=== PATIENT | male | born 1950 | race Caucasian/White ===

== ENCOUNTER 2016-04-30 06:12 | Day surgery (SDC) | payer MEDICARE ==
[2016-04-23 13:27] VITALS: BMI 36.6
[~2016-04-30 06:12] MED LIST: LACTATED RINGERS 1,000 ML IV SCH; SODIUM CHLORIDE 0.9% 1,000 ML IV SCH
[2016-04-30 06:29] VITALS: TEMP 98.1
[2016-04-30 06:42] LABS: Basophils % (A) 1 %; CH 32.6; CHCM 34.2; Eosinophils # (A) 0.2 k/uL (0-0.7); Eosinophils % (A) 3 %; HCT 42.4 % (39.0-53.0); HDW 2.81; HGB 14.5 gm/dL (13.0-17.5); Luc # (Auto) 0.15; Luc % (Auto) 3; Lymphocytes # (A) 1.4 k/uL (1.0-4.8); Lymphocytes % (A) 26 %; MCH 32.7 pg (25.0-35.0); MCHC 34.2 g/dL (31.0-37.0); MCV 95.5 fL (80.0-100.0); Mean Platelet Volume 7.9; Monocytes # (A) 0.4 k/uL (0-1.0); Monocytes % (A) 6 %; Neutrophils # (A) 3.4 k/uL (1.3-7.7); Neutrophils % (A) 61 %; RBC 4.44 m/uL (4.30-5.90); RDW 13.7 % (11.5-15.5); WBC 5.5 k/uL (3.8-10.6); WBC (Perox) 5.35
[2016-04-30 06:56] LABS: Anion Gap 14 mmol/L; Blood Urea Nitrogen 27 mg/dL (9-20); Calcium 9.1 mg/dL (8.4-10.2); Carbon Dioxide 23 mmol/L (22-30); Chloride 108 mmol/L (98-107); Glucose 117 mg/dL (74-99); Non-African American GFR(MDRD) >60 (>60 ml/min/1.73 sqM); Potassium 4.4 mmol/L (3.5-5.1); Sodium 145 mmol/L (137-145)
[2016-04-30] MEDS ORDERED: PROPOFOL 10 MG/ML 20 ML VIAL IV ONE (07:23)
[2016-04-30] MEDS ORDERED: MIDAZOLAM 2 MG/2 ML VIAL ONE (07:23)
[2016-04-30] MEDS: BENZOCAINE SPRAY 100 APPLIC/CAN MUCOUS MEM ONE ×3 (07:27→11:26)
[2016-04-30] MEDS ORDERED: SODIUM CHLORIDE 0.9% 1,000 ML IV SCH (07:45)
[2016-04-30 10:47] VITALS: BP 108/62; PULSE 58; RESP 16
--- NOTE | 2016-05-01 10:50 | ECHOT ---
DATE OF SERVICE: INDICATION: Chronic atrial fibrillation. PROCEDURE NOTE: After obtaining informed consent, transesophageal echocardiogram was performed in the left lateral position using an Omniplane probe. Local and IV sedation was obtained by the acid plant helper. Patient tolerated the procedure well without any obvious immediate complications. FINDINGS: 1. There is spontaneous echo contrast within the left atrium and an echodense lesion within the left atrial appendage, which is still seen while somewhat improved compared to where we were last time we looked at it. 2. Left atrium, it appears enlarged. 3. Right atrium, right ventricle are within normal limits. 4. Left ventricle appears dilated. Inferior wall is akinetic. There is moderate LV dysfunction with an ejection fraction of 40%. 5. Tricuspid valve is anatomically normal. There is moderate tricuspid regurgitation. There is mild mitral regurgitation noted. 6. Aorta shows mild to moderate atherosclerotic changes. CONCLUSIONS: 1. Evidence of the left atrial appendage thrombus. 2. Ischemic cardiomyopathy with moderate left ventricular dysfunction. PLAN: I am going to cancel the cardioversion at this time. I will continue with the current anticoagulant. I will see him back in the office and decide on further course of action.
== END 2016-04-30 10:49 | disposition home or self-care (01) ==
LOC: CATHCVL 06:12
PROVIDERS: ATTEND Internal Medicine Cardiovascular Disease
DX: I48.2 Chronic atrial fibrillation (principal); I51.3 Intracardiac thrombosis, not elsewhere classified; Z53.09 Procedure and treatment not carried out because of other contraindication; I25.5 Ischemic cardiomyopathy; I70.0 Atherosclerosis of aorta; I36.1 Nonrheumatic tricuspid (valve) insufficiency; I25.810 Atherosclerosis of coronary artery bypass graft(s) without angina pectoris; E78.5 Hyperlipidemia, unspecified; I10 Essential (primary) hypertension; Z79.02 Long term (current) use of antithrombotics/antiplatelets; Z79.82 Long term (current) use of aspirin; Z79.899 Other long term (current) drug therapy; Z95.1 Presence of aortocoronary bypass graft
CPT/HCPCS: 93312; 93320; 93325; 92960; 80048; 85025; J2250; J2704; 99152

== ENCOUNTER 2018-08-27 09:45 | Day surgery (SDC) | payer MEDICARE ==
[2018-08-25 14:20] VITALS: BMI 38.4
[~2018-08-27 09:45] MED LIST changes: -SODIUM CHLORIDE 0.9% 1,000 ML IV SCH
[2018-08-27 10:57] VITALS: TEMP 97.8
[2018-08-27] MEDS ORDERED: PROPOFOL 10 MG/ML 20 ML VIAL IV ONE (12:14)
--- NOTE | 2018-08-27 12:33 | P.PCN ---
Date of Procedure: 08/27/18 Procedure(s) Performed: BRIEF HISTORY: Patient is a 68-year-old pleasant white male scheduled for an elective colonoscopy as a part of value should of prior history of colon polyps. Last endoscopy was 3 years ago. PROCEDURE PERFORMED: Colonoscopy with biopsy. PREOPERATIVE DIAGNOSIS: History of colon polyps. IV sedation per Anesthesia. PROCEDURE: After informed consent was obtained, the patient, was brought into the endoscopy unit. IV sedation was administered by Anesthesia under continuous monitoring. Digital rectal examination was normal. Initially the Olympus CF-160 flexible video colonoscope was then inserted in the rectum, gradually advanced into the cecum without any difficulty. Careful examination was performed as the scope was gradually being withdrawn. Ileocecal valve and the appendiceal orifice were visualized and appeared normal. Prep was excellent. Mucosa of the cecum, ascending colon, transverse colon appeared normal. In the descending colon there was a 3-4 mm sessile polyp that was removed by cold biopsy. There was another 5 mm sessile polyp in the sigmoid colon that was removed by cold biopsy. Rest of the, descending colon, sigmoid colon, and rectum appeared normal. Retroflexion was performed in the rectum and no lesions were seen. The patient tolerated the procedure well. IMPRESSION: 3-4 mm sessile recent colon polyp status post removal by cold biopsy 5 mm sessile sigmoid colon polyp status post removal by cold biopsy RECOMMENDATIONS: Findings of this examination were discussed with the patient as well as his family. He was advised to follow with the biopsy results. If the biopsy shows adenoma, he can have a repeat colonoscopy in 5 years.
[2018-08-27 12:56] VITALS: BP 112/60; PULSE 51; RESP 18
== END 2018-08-27 13:03 | disposition home or self-care (01) ==
LOC: ORWHC2ENDO 09:45
PROVIDERS: ATTEND Internal Medicine Gastroenterology
DX: Z12.11 Encounter for screening for malignant neoplasm of colon (principal); D12.4 Benign neoplasm of descending colon; K63.5 Polyp of colon; I48.91 Unspecified atrial fibrillation; I25.10 Atherosclerotic heart disease of native coronary artery without angina pectoris; I10 Essential (primary) hypertension; E78.5 Hyperlipidemia, unspecified; Z95.1 Presence of aortocoronary bypass graft; Z86.010 Personal history of colon polyps; Z79.899 Other long term (current) drug therapy; Z79.82 Long term (current) use of aspirin; Z79.01 Long term (current) use of anticoagulants
CPT/HCPCS: 88305; 45380; J2704

== ENCOUNTER 2019-10-06 08:02 | Day surgery (SDC) | payer MEDICARE ==
[2019-10-03 17:02] VITALS: BMI 36.9
[~2019-10-06 08:02] MED LIST changes: +ALPRAZolam 0.25 MG TAB PO PRN; +ALPRAZolam 0.5 MG TAB PO PRN; +ASPIRIN 325 MG TAB PO STA; -LACTATED RINGERS 1,000 ML IV SCH; +NITROGLYCERIN SL TABS 0.4 MG TAB SUBLINGUAL PRN; +SODIUM CHLORIDE 0.9% 1,000 ML in EMPTY BAG 1 BAG IV ONE
[2019-10-06 08:49] LABS: Basophils % (A) 1 %; Eosinophils # (A) 0.2 k/uL (0-0.7); Eosinophils % (A) 4 %; HCT 42.8 % (39.0-53.0); HGB 14.5 gm/dL (13.0-17.5); Lymphocytes # (A) 1.3 k/uL (1.0-4.8); Lymphocytes % (A) 23 %; MCH 33.1 pg (25.0-35.0); MCHC 33.8 g/dL (31.0-37.0); MCV 97.7 fL (80.0-100.0); Mean Platelet Volume 8.4; Monocytes # (A) 0.4 k/uL (0-1.0); Monocytes % (A) 6 %; Neutrophils # (A) 3.7 k/uL (1.3-7.7); Neutrophils % (A) 65 %; Platelet Count 150 k/uL (150-450); RBC 4.38 m/uL (4.30-5.90); RDW 13.3 % (11.5-15.5); WBC 5.7 k/uL (3.8-10.6)
[2019-10-06] MEDS ORDERED: SODIUM CHLORIDE 0.9% 1,000 ML IV ONE (08:55)
[2019-10-06 08:56] LABS: African American GFR (CKD) >90 (>60 ml/min/1.73 sqM); Anion Gap 8 mmol/L; Blood Urea Nitrogen 27 mg/dL (9-20); Calcium 8.9 mg/dL (8.4-10.2); Carbon Dioxide 26 mmol/L (22-30); Chloride 105 mmol/L (98-107); Glucose 118 mg/dL (74-99); Non-African American GFR(CKD) 79 (>60 ml/min/1.73 sqM); Sodium 139 mmol/L (137-145)
[2019-10-06 09:00] LABS: Potassium 4.8 mmol/L (3.5-5.1)
[2019-10-06] MEDS ORDERED: LIDOCAINE 1% INJ 10MG/ML (20 ML MDV) ONE (09:14)
[2019-10-06] MEDS ORDERED: fentaNYL (PF) 50 MCG/ML 2 ML AMP ONE (09:15)
[2019-10-06] MEDS ORDERED: fentaNYL (PF) 50 MCG/ML 2 ML AMP IV ONE (09:20)
[2019-10-06] MEDS ORDERED: MIDAZOLAM 2 MG/2 ML VIAL IV ONE (09:20)
[2019-10-06] MEDS ORDERED: LIDOCAINE 1% INJ 10MG/ML (20 ML MDV) SQ ONE (09:21)
[2019-10-06] MEDS ORDERED: IOPAMIDOL-370 125ML BTL INJ ONE (09:48)
[2019-10-06] MEDS ORDERED: BIVALIRUDIN BOLUS 250 MG/50 ML IV ONE (10:13)
[2019-10-06] MEDS ORDERED: BIVALIRUDIN 250 MG in SODIUM CHLORIDE 0.9% 50 ML IV ONE ×2 (10:13→10:45)
[2019-10-06] MEDS ORDERED: fentaNYL (PF) 50 MCG/ML 2 ML AMP IVP ONE (10:16)
[2019-10-06] MEDS ORDERED: HYDROmorphone 1 MG/ML 1 ML SYRINGE ONE (10:21)
[2019-10-06] MEDS ORDERED: HYDROmorphone 1 MG/ML 1 ML SYRINGE IVP ONE (10:23)
[2019-10-06] MEDS ORDERED: niCARdipine Syringe (1,000 mcg/10 mL) INTRACORON ONE (11:18)
[2019-10-06] MEDS ORDERED: NITROGLYCERIN 1000MCG/10ML SYRINGE INTRACORON ONE (11:18)
[2019-10-06] MEDS ORDERED: IOPAMIDOL-370 100ML BTL INJ ONE (11:24)
[2019-10-06] MEDS ORDERED: MAG HYDROX/AL HYDROX/SIMETH 30 ML CUP PO PRN (12:11)
[2019-10-06] MEDS ORDERED: ATROPINE SULFATE 0.1 MG/ML 10ML SYRINGE IV PRN (12:11)
[2019-10-06] MEDS ORDERED: ZOLPIDEM 5 MG TAB PO PRN (12:11)
[2019-10-06] MEDS ORDERED: RX INFO: IV CONTRAST WAS GIVEN 1 EACH MISC MISCELLANE PRN (12:11)
[2019-10-06] MEDS ORDERED: SODIUM CHLORIDE 0.9% 1,000 ML IV SCH (12:15)
[2019-10-06 18:38] VITALS: RESP 18
[2019-10-06 19:54] VITALS: BP 149/73; PULSE 47; TEMP 97.7
[2019-10-06] MEDS ORDERED: APIXABAN 5 MG TAB PO SCH (21:00)
[2019-10-07] MEDS ORDERED: LISINOPRIL 10 MG TAB PO SCH (09:00)
[2019-10-07] MEDS ORDERED: ASPIRIN 81 MG PO SCH (09:00)
[2019-10-07] MEDS ORDERED: ATENOLOL 25 MG TAB PO SCH (09:00)
[2019-10-07] MEDS ORDERED: ATORVASTATIN 20 MG TAB PO SCH (09:00)
[2019-10-07] MEDS ORDERED: FUROSEMIDE 20 MG TAB PO SCH (09:00)
--- NOTE | 2019-10-07 13:01 | CC ---
CARDIAC CATHETERIZATION REPORT INDICATION: Known coronary artery disease status post CABG with recent stress test showing ischemia in the LAD territory. PROCEDURE NOTE: After obtaining informed consent, left heart catheterization, coronary angiogram and selective injection of the bypass grafts has been performed via the right femoral artery using standard Rasheed catheters. Patient tolerated the procedure well without any obvious immediate complications. Patient received moderate conscious sedation. Total sedation time was 31 minutes. FINDINGS: 1. HEMODYNAMICS: Left ventricular end-diastolic pressure is 8 mm. There is no significant gradient across the aortic valve. 2. LEFT VENTRICULOGRAM: Left ventriculogram was not performed. 3. ANGIOGRAPHIC DATA: [place] CORONARIES: Left main coronary artery has severe stenosis. Divides into LAD and circumflex coronary artery which are both diffusely diseased and proximally occluded. Right coronary artery shows chronic total occlusion proximally. SELECTIVE INJECTION OF THE BYPASS GRAFTS MEJIA to LAD: MEJIA to LAD was engaged using a size 4 right Rasheed catheter with proximal and distal anastomotic sites are free of significant disease. The [place] LAD is free of disease. Venous graft to the OM branch appears patent. The body of the graft is free of disease. Proximal and distal anastomotic sites are free of significant disease. [place] circumflex coronary artery appears normal. VENOUS GRAFT TO OM 2: Appears totally occluded. Venous graft to diagonal has a tight stenosis proximally with a diffuse disease in its midportion. Venous graft to the PDA and PLV appears patent. There is a moderate area of stenosis in the proximal part. CONCLUSION: 1. Severe [place] 3 vessel coronary artery disease with patent MEJIA to LAD, patent venous graft to OM branch, Patent venous graft to PDA, PLV that disease in the body of the graft. 2. Severe occlusive disease involving the venous graft to the diagonal, chronically occluded venous graft to the OM. PLAN: Dr. Grant the on-call business proposal rep will attempt angioplasty of the venous graft to diagonal, which is where the ischemia. MMODL / IJN: [id number] /
--- NOTE | 2019-10-07 13:08 | LTR ---
DATE OF SERVICE: 10/07/2019 RE: Darrick Jeanmarie Dear Tawanda; I performed cardiac catheterization on Jeanmarie Hollingsworth. A detailed catheterization note is enclosed for your records. In brief, cardiac catheterization reveals [place] severe three-vessel coronary artery disease with patent MEJIA to LAD, venous graft to OM and venous graft to PDA, PLV. The venous graft to the second OM branch is occluded and there is severe stenosis involving the venous graft to the diagonal. Dr. Grant will attempt angioplasty of the same. Thank you for giving us the privilege of participating in the care of this pleasant gentleman. Sincerely, MD FAVIAN Su / VANDANA: [id number] /
--- NOTE | 2019-10-07 16:59 | PTCA ---
PERCUTANEOUSTRANS CORORONARY ANGIOGRAPHY DATE OF PROCEDURE: 10/06/2019 PERFORMING PHYSICIAN: Duy Grant M.D. PROCEDURE PERFORMED: Attempted balloon angioplasty of the proximal saphenous vein graft to diagonal with inadequate angiographic results. INDICATION: This is a very pleasant 69-year-old gentleman who sees Dr. Fierro in the office as an outpatient. He is known to have coronary artery disease and prior coronary artery bypass grafting. He was experiencing symptoms of chest discomfort and underwent heart catheterization by Dr. Fierro that revealed critical disease involving the SVG to diagonal. The decision was made to proceed with percutaneous coronary intervention. APPROACH: Right common femoral artery. COMPLICATIONS: None. LEVEL OF SEDATION: Moderate, with a sedation length of 72 minutes. PROCEDURE DESCRIPTION: Please refer to diagnostic heart catheterization that was performed by Dr. Fierro. Subsequently and initially I engaged the SVG to diagonal using a JL4 guide. I had a hard time crossing the lesion in the proximal SVG to diagonal, and every time I tried to advance the wire, the guide backed out on me. Because of that I decided to pull the wire out and change my guide to an Amplatzer 1 guide. I did engage the graft again using an AL1 guide. I attempted crossing the critical lesion in the proximal SVG to diagonal using initially after I engaged the guide, I attempted to engage the graft. I attempted crossing the critical lesion initially using an 0.014 Whisper wire, and I was unable, then an 0.014 run-through wire and I was unable, then an 0.014 Fielder XT wire and I was unable. Finally, with the backup support of a SuperCross catheter at a 90-degree angle, I was able to cross the lesion using a Whisper J-wire. The wire was advanced all the way to the distal portion of the graft. Unfortunately, I could not advance a 1.2 mm or 1.5 mm balloon across the lesion. I even attempted changing my wire to a stiffer wire over SuperCross catheter and over a Teleport catheter, and that was also unsuccessful. After multiple attempts, I decided to stop. I did an angiogram by the end, which showed exactly the same results at the beginning before we started intervening on the patient. POST-PROCEDURE MANAGEMENT: 1. Medical treatment. 2. Follow up with the patient. Please note that the patient was given anticoagulation with Angiomax at the beginning of the procedure. MMODL / IJN: [id number] /
== END 2019-10-06 20:54 | disposition home or self-care (01) ==
LOC: CATHCVL 08:02 → 3SCARD 11:24 → CATHCVL 20:54
PROVIDERS: ATTEND Internal Medicine Cardiovascular Disease
DX: I25.810 Atherosclerosis of coronary artery bypass graft(s) without angina pectoris (principal); I25.10 Atherosclerotic heart disease of native coronary artery without angina pectoris; I25.5 Ischemic cardiomyopathy; I10 Essential (primary) hypertension; I48.21 Permanent atrial fibrillation; E78.2 Mixed hyperlipidemia; Z95.1 Presence of aortocoronary bypass graft; Z79.82 Long term (current) use of aspirin; Z79.01 Long term (current) use of anticoagulants; Z79.899 Other long term (current) drug therapy
CPT/HCPCS: 80048; 85025; 92920; 93459

== ENCOUNTER → 2019-12-23 | Outpatient (CLI) | payer MEDICARE ==
[2019-12-23 13:57] LABS: Basophils # (A) 0.1 k/uL (0-0.2); Basophils % (A) 1 %; Eosinophils # (A) 0.2 k/uL (0-0.7); Eosinophils % (A) 4 %; HCT 44.4 % (39.0-53.0); HGB 14.2 gm/dL (13.0-17.5); Lymphocytes # (A) 1.4 k/uL (1.0-4.8); Lymphocytes % (A) 23 %; MCH 31.4 pg (25.0-35.0); MCHC 31.9 g/dL (31.0-37.0); MCV 98.5 fL (80.0-100.0); Mean Platelet Volume 8.2; Monocytes # (A) 0.4 k/uL (0-1.0); Monocytes % (A) 6 %; Neutrophils % (A) 64 %; Platelet Count 142 k/uL (150-450); RBC 4.51 m/uL (4.30-5.90); RDW 13.4 % (11.5-15.5); WBC 6.2 k/uL (3.8-10.6)
[2019-12-23 19:43] LABS: INR 1.19 (0.90-1.11); Prothrombin Time 12.6 sec (9.9-11.9)
[2019-12-23 19:57] LABS: African American GFR (CKD) 70.6 (60.0-200.0); Albumin 4.3 g/dL (3.80-4.90); Albumin/Globulin Ratio 1.72 (1.60-3.17); Anion Gap 5.4 mmol/L (4.00-12.00); BUN/Creat Ratio 20.83 Ratio (12.00-20.00); Calcium 9.5 mg/dL (8.7-10.3); Carbon Dioxide 28.6 mmol/L (21.6-31.8); Globulin 2.5 g/dL (1.6-3.3); Non-African American GFR(CKD) 60.9 (60.0-200.0); Potassium 4.5 mmol/L (3.5-5.5); Total Protein 6.8 g/dL (6.2-8.2)
[2019-12-23 20:44] LABS: Hepatitis B Surface AB- Quant 3.5 mIU/mL; Hepatitis B Surface Antibody Non-Reactive (Non-Reactive); Hepatitis B Surface Antigen Non-Reactive (Non-Reactive); Hepatitis C IgG Antibody Non-Reactive (Non-Reactive)
[2019-12-24 14:09] LABS: Alpha Fetoprotein, Tumor Mkr <2.5 ng/mL (0.0-7.9)
== END | disposition home or self-care (01) ==
LOC: LABWHC1 11:48
PROVIDERS: ATTEND Internal Medicine
DX: K76.9 Liver disease, unspecified (principal)
CPT/HCPCS: 36415; 80053; 82105; 85025; 85610; 86704; 86706; 86803; 87340